=== PATIENT | male | born 1955 | race Caucasian/White ===

== ENCOUNTER → 2017-06-30 | Outpatient (CLI) | payer BC ==
--- NOTE | 2017-06-30 09:23 | US ---
EXAMINATION TYPE: US thyroid st tissue head/neck DATE OF EXAM: 06/30/2017 COMPARISON: 03/29/2016 CLINICAL HISTORY: 62-year-old male E04.1 Thyroid Nodule. TECHNIQUE: Multiple sonographic images of the thyroid gland are obtained. FINDINGS: GLAND SIZE: Right Lobe: 5.3 x 2.0 x 2.2 cm Overall Parenchyma: heterogenous Left Lobe: 5.2 x 1.7 x 2.3 cm Overall Parenchyma: heterogeneous Isthmus Thickness: 0.3 cm NODULES: A number of bilateral subcentimeter nodules are present. Nodules greater than 1 cm are as follows: RIGHT: # of nodules measured on right: 1 1. 1.3 X 1.0 x 1.3 cm isoechoic solid nodule at the lower pole with well-defined margins; This nod ule is wider than tall and shows intranodular vascularity. Prior size: 1.3 x 1.0 x 1.1 cm LEFT: # of nodules measured on left: 1 1. 1.5 X 1.4 x 1.0 cm hypoechoic solid nodule at the upper pole with well-defined margins; This nod ule is wider than tall and shows intranodular vascularity. Prior size: 1.5 x 1.2 x 0.9 cm ISTHMUS: # of nodules measured in the isthmus: 0 Bilateral neck scanned, no evidence of lymphadenopathy. Multiple nodules bilaterally with largest on each side >1.0 cm measured, all other nodules sub-centimeter in size IMPRESSION: Scattered subcentimeter nodules redemonstrated on both sides. There is one nodule on each side measur ing more than 1 cm. These have not significantly changed in the interval measuring only a couple mill imeters larger in one dimension.
== END | disposition home or self-care (01) ==
LOC: RADUSWWP 08:49
PROVIDERS: ATTEND Otolaryngology
DX: E04.2 Nontoxic multinodular goiter (principal)
CPT/HCPCS: 76536

== ENCOUNTER → 2018-08-28 | Outpatient (CLI) | payer BC ==
--- NOTE | 2018-08-28 17:51 | US ---
EXAMINATION TYPE: US thyroid st tissue head/neck DATE OF EXAM: 08/28/2018 COMPARISON: 06/30/2017 CLINICAL HISTORY: E04.1 SINGLE THYROID NODULE. Follow up on 2 prior nodules in multinodular thyroid gland. GLAND SIZE: Right Lobe: 5.0 x 1.9 x 1.8 cm Overall Parenchyma: heterogenous Left Lobe: 5.2 x 1.8 x 2.2 cm Overall Parenchyma: heterogeneous Isthmus Thickness: 0.6 cm NODULES RIGHT: # of nodules measured on right: 2 largest of multiple nodules 1. 1.3 x 1.3 x 1.2cm hypoechoic mixed nodule at the lower pole with well-defined margins. This nod ule is taller than wide and shows intranodular vascularity. Prior size: 1.3 x 1.0 x 1.3 cm 2. 0.7 X 0.7 x 0.7 cm hypoechoic mixed nodule at the mid pole with well-defined margins. This nodul e is wide as is tall and shows intranodular vascularity. LEFT: # of nodules measured on left: 3 largest of multiple nodules 1. 1.5 X 1.3 x 1.0 cm hypoechoic solid nodule at the upper pole with well-defined margins. This no dule is wider than tall and shows intranodular vascularity. Prior size: 1.5 x 1.4 x 1.0 cm 2. 0.9 X 0.8 x 0.5 cm hypoechoic solid nodule at the mid medial pole with well-defined margins. Thi s nodule is wider than tall and shows no intranodular vascularity. 3. 0.8 X 0.7 x 0.5 cm hypoechoic mixed nodule at the mid lateral pole with well-defined margins; pre sent with microcalcifications. This nodule is wider than tall and shows no intranodular vascularity. ISTHMUS: # of nodules measured in the isthmus: 0 Bilateral neck scanned: no evidence of lymphadenopathy. IMPRESSION: There are numerous nodules in both thyroid lobes consistent with multinodular goiter. No dominant thyroid mass. No adverse change compared to old exam.
== END | disposition home or self-care (01) ==
LOC: RADUSWWP 16:41
PROVIDERS: ATTEND Family Medicine
DX: E04.2 Nontoxic multinodular goiter (principal)
CPT/HCPCS: 76536

== ENCOUNTER 2018-12-18 17:15 | Emergency (ER) | payer BC ==
[2018-12-18 17:20] VITALS: BP 156/72
[2018-12-18] MEDS ORDERED: LIDOCAINE 1% INJ 10MG/ML (20 ML MDV) SQ ONE (17:26)
[2018-12-18] MEDS ORDERED: DIPH,PERTUS(ACELL)TETVAC-LF 0.5 ML VIAL IM ONE (17:26)
--- NOTE | 2018-12-18 17:31 | ED ---
Wound/Laceration HPI - General Chief Complaint: Wound/Laceration Stated Complaint: leg lac Time Seen by Provider: 12/18/18 17:22 Source: patient Mode of arrival: ambulatory Limitations: no limitations - History of Present Illness Initial Comments: 63-year-old male patient presents to the emergency department today for evaluation of laceration to the right dias. Patient states approximately 3 hours ago he was cutting open a right when he slipped with the knife and cut his leg instead. Patient states he did apply a dressing however was unable to get the bleeding controlled so presented here for further evaluation. He denies any numbness or tingling to the leg. Denies any difficulty with range of motion or movement. States he takes a baby aspirin daily. States his last tetanus vaccine was over 5 years ago. Denies any other injuries or concerns. Patient denies any headache, neck pain, back pain, chest pain, shortness of breath, dizziness, weakness, abdominal pain, nausea, vomiting, or difficulties with bowel movements or urination. - Related Data Home Medications Medication Instructions Recorded Confirmed Aspirin 81 mg PO DAILY 02/24/14 09/13/16 Losartan Potassium 100 mg PO DAILY 02/24/14 09/13/16 Multivitamin [Men's Multi-Vitamin] 1 each PO DAILY 02/24/14 09/13/16 Niacin 100 mg PO DAILY 02/24/14 09/13/16 Ubidecarenone [Coq-10] 100 mg PO DAILY 02/24/14 09/13/16 Empagliflozin/Linagliptin 4 mg PO DAILY 09/13/16 09/13/16 [Glyxambi 10 mg-5 mg Tablet] Pitavastatin Calcium [Livalo] 0.5 tab PO DAILY 09/13/16 09/13/16 Previous Rx's Medication Instructions Recorded Amoxic-Pot Clav 875-125Mg 1 tab PO Q12HR #20 tablet 12/18/18 [Augmentin 875-125] Allergies Allergy/AdvReac Type Severity Reaction Status Date / Time No Known Allergies Allergy Verified 12/18/18 17:20 Review of Systems ROS Statement: Those systems with pertinent positive or pertinent negative responses have been documented in the HPI. ROS Other: All systems not noted in ROS Statement are negative. Past Medical History Past Medical History: Cancer, Diabetes Mellitus, Hypertension Additional Past Medical History / Comment(s): Melanoma History of Any Multi-Drug Resistant Organisms: None Reported Past Surgical History: No Surgical Hx Reported Additional Past Surgical History / Comment(s): neck surgery; lymph nodes removed; colonoscopy Past Anesthesia/Blood Transfusion Reactions: No Reported Reaction Past Psychological History: No Psychological Hx Reported Smoking Status: Never smoker Past Alcohol Use History: Rare Past Drug Use History: None Reported - Past Family History Mother Family Medical History: No Reported History Sister(s) Family Medical History: Cancer General Exam Limitations: no limitations General appearance: alert, in no apparent distress, other (Physical well- developed, well-nourished adult male patient in no acute distress related vital signs upon presentation are temperature 98.1F, pulse 64, respirations 18, blood pressure 156/72, pulse ox 97% on room air.) Eye exam: Present: normal appearance, PERRL, EOMI. Absent: scleral icterus, conjunctival injection, periorbital swelling Respiratory exam: Present: normal lung sounds bilaterally. Absent: respiratory distress, wheezes, rales, rhonchi, stridor Cardiovascular Exam: Present: regular rate, normal rhythm, normal heart sounds. Absent: systolic murmur, diastolic murmur, rubs, gallop, clicks Extremities exam: Present: full ROM, normal capillary refill, other (3cm laceration to the lower anterior dias, active bleeding noted. Remainder of skin is pink, warm, dry. Cap refills less than 3 seconds. Pedal and posttibial pulses 2+ and equal bilaterally.). Absent: normal inspection, tenderness, pedal edema, joint swelling, calf tenderness Neurological exam: Present: alert, oriented X3, CN II-XII intact Psychiatric exam: Present: normal affect, normal mood Skin exam: Present: warm, dry, intact, normal color. Absent: rash Course Vital Signs 12/18/18 17:16 Temperature 98.1 F Pulse Rate 64 Respiratory 18 Rate Blood Pressure 156/72 O2 Sat by Pulse 97 Oximetry Procedures - Laceration Laceration #1 Consent Obtained: verbal consent Indication: laceration Site: lower extremity Size (cm): 3 Description: linear Depth: simple, single layer Anesthetic Used: lidocaine 1% Anesthesia Technique: local infiltration Amount (mls): 5 Pre-repair: irrigated extensively Type of Sutures: nylon Size of Sutures: 4-0 Number of Sutures: 3 Technique: simple, interrupted Patient Tolerated Procedure: well, no complications Medical Decision Making - Medical Decision Making 62-year-old male patient presented to the emergency department today for jennifer luation of laceration to the right lower dias. Physical examination did reveal a 3 cm laceration with active bleeding. Neurovascular status was intact. Laceration was repaired as documented. Patient also had a cat scratch to the right hand. He was given a prescription for Augmentin should this started to develop signs of infection which we did discuss. He is educated regarding wound care and signs or symptoms of infection. He is instructed to return in 14 days for suture removal. Return parameters were discussed in detail. He is instructed to follow-up with his primary care physician for recheck in 1-2 days. He verbalizes understanding and agrees with this plan. Disposition Clinical Impression: Laceration of right lower extremity, Cat scratch of right hand Disposition: HOME SELF-CARE Condition: Good Instructions (If sedation given, give patient instructions): Care For Your Stitches (ED), Laceration (ED) Additional Instructions: Keep wound clean and dry. Cleanse twice daily with warm water and antibacterial soap. Monitor for signs or symptoms of infection including but not limited to redness, swelling, drainage of pus, fever, or chills. Monitor Scratch, this develops redness started taking the antibiotic. Follow up with your primary care physician for recheck in 1-2 days. Return in 14 days to have the stitches removed. Return for any other new, worsening, or concerning symptoms. Prescriptions: Amoxic-Pot Clav 875-125Mg [Augmentin 875-125] 1 tab PO Q12HR #20 tablet Is patient prescribed a controlled substance at d/c from ED?: No Referrals: Kb Chambers MD [Primary Care Provider] - 1-2 days Time of Disposition: 18:01
[2018-12-18 18:14] VITALS: PULSE 70; RESP 16; TEMP 98
== END 2018-12-18 18:19 | disposition home or self-care (01) ==
LOC: EC 17:15
DX: S81.811A Laceration without foreign body, right lower leg, initial encounter (principal); S60.511A Abrasion of right hand, initial encounter; E11.9 Type 2 diabetes mellitus without complications; I10 Essential (primary) hypertension; Z85.820 Personal history of malignant melanoma of skin; Z79.82 Long term (current) use of aspirin; Z79.84 Long term (current) use of oral hypoglycemic drugs; Z79.899 Other long term (current) drug therapy; Z23 Encounter for immunization; W26.0XXA Contact with knife, initial encounter; Y93.89 Activity, other specified; Y92.009 Unspecified place in unspecified non-institutional (private) residence as the place of occurrence of the external cause
CPT/HCPCS: 90715; 99282; 12002; 90471; J2001

== ENCOUNTER → 2019-12-17 | Outpatient (CLI) | payer BC ==
--- NOTE | 2019-12-17 16:21 | US ---
EXAMINATION TYPE: US thyroid st tissue head/neck DATE OF EXAM: 12/17/2019 COMPARISON: US 08/28/2018 CLINICAL HISTORY: E04.1 Thyroid nodule. F/U GLAND SIZE: Right Lobe: 5.3 x 1.9 x 1.8 cm Overall Parenchyma: heterogenous Left Lobe: 4.5 x 1.4 x 2.0 cm Overall Parenchyma: heterogeneous Isthmus Thickness: 0.4 cm NODULES RIGHT: # of nodules measured on right: 1 1. 1.3 X 1.0 x 1.4 cm isoechoic solid nodule at the lower pole with poorly defined margins; This n odule is wider than tall and shows intranodular vascularity. Prior size: 1.3 x 1.2 x 1.3 cm Innumerable sub-centimeter nodules scattered throughout thyroid LEFT: # of nodules measured on left: 1 1. 1.4 X 1.0 x 1.3 cm hypoechoic solid nodule at the upper pole with well-defined margins; This no dule is wider than tall and shows intranodular vascularity. Prior size: 1.5 x 1.0 x 1.3 cm Other sub-centimeter nodules scattered throughout thyroid Bilateral neck scanned, no evidence of lymphadenopathy. Stable nodules bilaterally that measured >1cm , all other nodules sub-centimeter in size as visualized on previous. IMPRESSION: 1. Stable thyroid nodules.
== END | disposition home or self-care (01) ==
LOC: RADUSMAIN 14:46
PROVIDERS: ATTEND Otolaryngology
DX: E04.2 Nontoxic multinodular goiter (principal)
CPT/HCPCS: 76536

== ENCOUNTER → 2019-12-24 | Outpatient (CLI) | payer BC ==
--- NOTE | 2019-12-24 11:30 | ECHOS ---
STRESS ECHOCARDIOGRAM INDICATIONS: Chest pain. MEDICATIONS: BASELINE HEART RATE: 73 BASELINE BLOOD PRESSURE: 138/65 MAXIMUM HEART RATE: 146 MAXIMUM BLOOD PRESSURE: 208/81 85% MPHR: 133 100% MPHR: 156 METS: 11 MAXIMUM STAGE REACHED: IV TOTAL EXERCISE TIME: 10 minutes CLINICAL INFORMATION: Baseline EKG shows sinus rhythm, normal axis, normal intervals. Patient exercised on Soren protocol for a total of 10 minutes achieving 11 METs 93% of predicted maximal heart rate without chest pain. At peak exercise, occasional PVCs are noted. Baseline echo shows normal left ventricular size, wall motion and systolic function. Postexercise, there is normal hyperdynamic response of all segments of myocardium noted. CONCLUSIONS: 1. Good exercise tolerance. 2. Negative stress test by EKG criteria. 3. Negative stress echo. 4. Occasional PVCs at peak exercise. MMODL / IJN: [id number] /
== END | disposition home or self-care (01) ==
LOC: RADNMMAIN 09:31
PROVIDERS: ATTEND Family Medicine
DX: R07.9 Chest pain, unspecified (principal)
CPT/HCPCS: 93351

== ENCOUNTER → 2022-05-07 | Outpatient (CLI) | payer MEDICARE ==
--- NOTE | 2022-05-07 16:01 | CT ---
EXAMINATION TYPE: CT brain wo con CT DLP: 1162.8 mGycm, Automated exposure control for dose reduction was used. DATE OF EXAM: 05/07/2022 3:51 PM COMPARISON: None. CLINICAL INDICATION:Male, 67 years old with history of R55 SYNCOPE AND COLLAPSE, dizziness x4-5 weeks TECHNIQUE: Brain: Multiple axial CT images of the brain were obtained without IV contrast. Coronal and sagittal reformats reviewed. FINDINGS: Brain: Extra-axial spaces: No abnormal extra-axial fluid collections. Ventricular system: Within normal limits Cerebral parenchyma: No acute intraparenchymal hemorrhage or mass effect. The bloom-white junction is well differentiated. Cerebellum: Unremarkable. Mass effect: No evidence of midline shift. Intracranial vasculature: Atherosclerotic calcifications of the intracranial vessels. Soft tissues: Normal. Calvarium/osseous structures: No depressed skull fracture. Paranasal sinuses and mastoid air cells: Clear Visualized orbits: Orbital contents are intact. IMPRESSION: No acute intracranial process.
== END | disposition home or self-care (01) ==
LOC: RADCTMAIN 15:29
PROVIDERS: ATTEND Family Medicine
DX: R55 Syncope and collapse (principal)
CPT/HCPCS: 70450

== ENCOUNTER 2022-08-30 08:13 | Day surgery (SDC) | payer MEDICARE ==
[2022-08-28 11:59] VITALS: BMI 32.1
[~2022-08-30 08:13] MED LIST: LACTATED RINGERS 1,000 ML IV SCH; LIDOCAINE 1% (10MG/ML) FOR IV START INTRADERMA PRN
[2022-08-30 09:18] VITALS: TEMP 97.6
[2022-08-30 09:30] LABS: Glucose,Whole Blood 146 mg/dL (70-110)
[2022-08-30] MEDS ORDERED: PROPOFOL 10 MG/ML 20 ML VIAL IV ONE (10:17)
--- NOTE | 2022-08-30 10:41 | P.PCN ---
Date of Procedure: 08/30/22 Procedure(s) Performed: BRIEF HISTORY: Patient is a 57-year-old pleasant white male scheduled for an elective colonoscopy as a part of evaluation of prior history of colon polyps. Last coloscopy was 6 years ago. PROCEDURE PERFORMED: Colonoscopy with biopsy and snare polypectomy. PREOPERATIVE DIAGNOSIS: History of colon polyps. IV sedation per Anesthesia. PROCEDURE: After informed consent was obtained, the patient, was brought into the endoscopy unit. IV sedation was administered by Anesthesia under continuous monitoring. Digital rectal examination was normal. Initially the Olympus CF-160 flexible video colonoscope was then inserted in the rectum, gradually advanced into the cecum without any difficulty. Careful examination was performed as the scope was gradually being withdrawn. Ileocecal valve was very prominent and lipomatous and biopsies were done from this area and the appendiceal orifice were visualized and appeared normal. Prep was excellent. Mucosa of the cecum, ascending colon, transverse colon, normal. The descending colon there was a 5 limited polyp removed by snare polypectomy. In the sigmoid colon there was a 5 mm and 6 mm polyp removed by snare polypectomy. Rest of the descending colon, sigmoid colon, and rectum appeared normal. In the rectum there was a 5 limited polyp removed by snare polypectomy. Retroflexion was performed in the rectum and no lesions were seen. The patient tolerated the procedure well. IMPRESSION: Prominent lipomatous ileocecal valve status post biopsy 5 mm descending colon polyp status post snare polypectomy 5 mm and 6 mm sigmoid polyp status post polypectomy 5 mm rectal polyp status post polypectomy RECOMMENDATIONS: Findings of this examination were discussed with the patient as well as his family. He was advised to follow with the biopsy results. If the biopsy results adenoma he can have a repeat colonoscopy in 5 years..
[2022-08-30 11:00] VITALS: BP 132/82; PULSE 74; RESP 16
== END 2022-08-30 11:18 | disposition home or self-care (01) ==
LOC: ORWHC2ENDO 08:13
PROVIDERS: ATTEND Internal Medicine Gastroenterology
DX: Z12.11 Encounter for screening for malignant neoplasm of colon (principal); D12.4 Benign neoplasm of descending colon; D12.5 Benign neoplasm of sigmoid colon; K62.1 Rectal polyp; K63.89 Other specified diseases of intestine
CPT/HCPCS: 88305; 45380; 45385; J2704

== ENCOUNTER → 2023-03-14 | Outpatient (CLI) | payer MEDICARE ==
--- NOTE | 2023-03-14 13:27 | US ---
EXAMINATION TYPE: US thyroid st tissue head/neck DATE OF EXAM: 03/14/2023 COMPARISON: US 12/17/19 and older studies. CLINICAL INDICATION: Male, 68 years old with history of E04.1 THYROID NODULE; Thyroid nodule. GLAND SIZE: Right Lobe: 5.4 x 2.3 x 2.1 cm Overall Parenchyma: heterogenous Left Lobe: 5.9 x 2.1 x 2.3 cm Overall Parenchyma: heterogenous Isthmus Thickness: 0.38 cm NODULES RIGHT: # of nodules measured on right: 2, Additional subcentimeter nodules seen. 1. 1.5 X 1.8 x 1.5 cm, lower mid, solid or almost completely solid, isoechoic nodule, which is wide r than tall, with smooth margins, without echogenic foci. Prior size: 1.3 x 1.0 x 1.4 cm 2. 0.8 X 0.7 x 0.5 cm, mid medial, cystic or almost completely cystic, anechoic nodule, which is w ider than tall, with smooth margins, with echogenic foci. Prior size: Does not correlate on prior Additional innumerable subcentimeter nodules noted. LEFT: # of nodules measured on left: 2, Additional subcentimeter nodules seen. 1. 1.6 X 1.3 x 1.0 cm, upper medial, solid or almost completely solid, hypoechoic nodule, which is wider than tall, with smooth margins, without echogenic foci. Prior size: 1.4 x 1.0 x 1.3 cm 2. 1.2 X 0.8 x 0.7 cm, mid mid, solid or almost completely solid, hypoechoic nodule, which is wide r than tall, with smooth margins, without echogenic foci. Prior size: Does not correlate on prior Additional innumerable subcentimeter nodules noted. ISTHMUS: # of nodules measured in the isthmus: 0 Bilateral neck scanned, no evidence of lymphadenopathy. Heterogeneous normal-sized thyroid with several bilateral thyroid nodules redemonstrated. IMPRESSION: Findings consistent with multinodular goiter remain present. No significant change from p rior ultrasounds.
== END | disposition home or self-care (01) ==
LOC: RADUSWWP 12:38
PROVIDERS: ATTEND Otolaryngology
DX: E04.2 Nontoxic multinodular goiter (principal)
CPT/HCPCS: 76536

== ENCOUNTER → 2023-04-30 | Outpatient (CLI) | payer MEDICARE ==
--- NOTE | 2023-04-30 10:06 | MR ---
EXAMINATION TYPE: MR brain and iac wo/w con DATE OF EXAM: 04/30/2023 COMPARISON: HISTORY: Sudden left side hearing loss. TECHNIQUE: Multiplanar, multisequence images of the brain and brainstem is performed without and with IV contras t, utilizing 10 mL intravenous Gadavist . FINDINGS: Diffusion weighted images demonstrate no evidence of a recent infarct or other diffusion ab normality. There is no extra-axial fluid collection or significant white matter signal abnormality. The ventricular system and cisternal spaces are normal in size and appearance. The brain volume is age appropriate. Midline structures demonstrate normal morphology. The craniocervical junction appears within normal limits. Post contrast images demonstrate no abnormal enhancement. The dural venous sinuses appear pa tent. Mild changes of chronic sinusitis and the globes are intact. There is a lobulated prominence measurin g 1.3 cm posterior nasopharynx. There is a 7 mm area of enhancement within the intracanicular portion of the left internal auditory c anal\7th and 8th cranial nerve complex compatible with a small acoustic schwannoma IMPRESSION: 1. 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 2. There is a lobulated margin of the posterior nasopharynx with a 1.3 cm mucosal lesion which does n ot appear to be compatible with a simple cyst\Thornwald cyst. Correlate clinically.
== END | disposition home or self-care (01) ==
LOC: RADMRIMAIN 08:03
PROVIDERS: ATTEND Otolaryngology
DX: D33.3 Benign neoplasm of cranial nerves (principal); H90.A22 Sensorineural hearing loss, unilateral, left ear, with restricted hearing on the contralateral side; J34.89 Other specified disorders of nose and nasal sinuses
CPT/HCPCS: 70553; A9585

== ENCOUNTER 2023-05-14 09:41 | Emergency (ER) | payer MEDICARE ==
[2023-05-14] MEDS ORDERED: MECLIZINE 12.5 MG TAB PO STA (10:16)
[2023-05-14] MEDS ORDERED: METOCLOPRAMIDE 5 MG/ML 2 ML VIAL IVP STA (10:16)
--- NOTE | 2023-05-14 10:19 | ED ---
General Adult HPI - General Chief complaint: Dizziness Stated complaint: Dizziness Time Seen by Provider: 05/14/23 10:05 Source: patient, family, EMS, RN notes reviewed Mode of arrival: EMS Limitations: no limitations - History of Present Illness Initial comments: Patient is a pleasant 68-year-old male presenting to the emergency department with concerns with dizziness. Onset of symptoms was around 8 AM. Patient was arty awake. Patient suddenly felt a spinning type sensation that was difficult to describe. Patient states symptoms are better but not fully resolved. Symptoms are worse with movement and upright position. No history of similar s ymptoms previously. Patient does have a history of left hearing loss with a cyst behind her left tympanic membrane diagnosed on MRI a couple weeks ago. Patient did have a fall prior to that a week or so and has had some neck discomfort since that time. Patient also had MRI done of the neck. Patient denies striking his head at that time. Patient denies syncope despite nursing note seen otherwise. Patient is confident regarding this. - Related Data Home Medications Medication Instructions Recorded Confirmed Losartan Potassium 100 mg PO DAILY 02/24/14 05/14/23 Multivitamin [Men's Multi-Vitamin] 1 tab PO DAILY 02/24/14 05/14/23 metFORMIN HCL [Glucophage] 500 mg PO BID-W/MEALS 08/28/22 05/14/23 Aspirin EC [Ecotrin Low Dose] 81 mg PO DAILY 05/14/23 05/14/23 Empagliflozin [Jardiance] 25 mg PO DAILY 05/14/23 05/14/23 Ibuprofen [Motrin] 800 mg PO TID PRN 05/14/23 05/14/23 Semaglutide [Ozempic] 1 mg SQ MO 05/14/23 05/14/23 hydroCHLOROthiazide [Hydrodiuril] 25 mg PO DAILY 05/14/23 05/14/23 icosapent ethyL [Icosapent Ethyl] 2 gm PO BID 05/14/23 05/14/23 tadalafiL 5 mg PO DAILY 05/14/23 05/14/23 Allergies Allergy/AdvReac Type Severity Reaction Status Date / Time No Known Allergies Allergy Verified 05/14/23 12:55 Review of Systems ROS Statement: Those systems with pertinent positive or pertinent negative responses have been documented in the HPI. ROS Other: All systems not noted in ROS Statement are negative. Constitutional: Denies: fever Eyes: Denies: eye pain ENT: Reports: as per HPI. Denies: ear pain Respiratory: Denies: cough Cardiovascular: Denies: chest pain Endocrine: Denies: fatigue Gastrointestinal: Denies: abdominal pain Genitourinary: Denies: dysuria Neurological: Reports: vertigo. Denies: headache, weakness Past Medical History Past Medical History: Cancer, Diabetes Mellitus, Hyperlipidemia, Hypertension Additional Past Medical History / Comment(s): Melanoma History of Any Multi-Drug Resistant Organisms: None Reported Past Surgical History: No Surgical Hx Reported Additional Past Surgical History / Comment(s): neck surgery; lymph nodes removed; colonoscopy Past Anesthesia/Blood Transfusion Reactions: No Reported Reaction Past Psychological History: No Psychological Hx Reported Smoking Status: Never smoker Past Alcohol Use History: Occasional - Past Family History Mother Family Medical History: No Reported History Sister(s) Family Medical History: Cancer General Exam Limitations: no limitations General appearance: alert, in no apparent distress Head exam: Present: normocephalic Eye exam: Present: normal appearance, PERRL, EOMI. Absent: nystagmus ENT exam: Present: normal oropharynx Neck exam: Present: normal inspection. Absent: tenderness Respiratory exam: Present: normal lung sounds bilaterally Cardiovascular Exam: Present: regular rate, normal rhythm GI/Abdominal exam: Present: soft. Absent: tenderness Extremities exam: Present: normal inspection, full ROM. Absent: tenderness Neurological exam: Present: alert, oriented X3, CN II-XII intact (Hearing not tested). Absent: motor sensory deficit Expanded Neurological exam: Present: protecting the airway Speech: Present: fluid speech Cranial nerves: EOM's Intact: Normal Cerebellar function: Finger to Nose: Normal Motor strength exam: RUE: 5, LUE: 5, RLE: 5, LLE: 5 Eye Response: (4) open spontaneously Motor Response: (6) obeys commands Verbal Response: (5) oriented Psychiatric exam: Present: normal affect, normal mood Skin exam: Present: normal color Course Vital Signs 05/14/23 05/14/23 09:45 12:39 Temperature 97.2 F L 97.5 F L Pulse Rate 81 69 Respiratory 18 17 Rate Blood Pressure 140/85 129/77 O2 Sat by Pulse 100 93 L Oximetry EKG Findings - EKG Results: EKG: interpreted by ERMD, sinus rhythm, normal axis, normal QRS, normal ST/T Medical Decision Making - Medical Decision Making Was pt. sent in by a medical professional or institution (GUY Reid, STRADDLE BUG DRIVER, urgent care, hospital, or senior care...) When possible be specific @ -No Did you speak to anyone other than the patient for history (EMS, parent, family, police, friend...)? What history was obtained from this source @ -Family helps provide history including single episode prior to arrival. Family later arrived and confirmed patient did have a syncopal episode Did you review nursing and triage notes (agree or disagree)? Why? @ -I reviewed and agree with nursing and triage notes Were old charts reviewed (outside hosp., previous admission, EMS record, old EKG, old radiological studies, urgent care reports/EKG's, senior care records)? Report findings @ -No old charts were reviewed Differential Diagnosis (chest pain, altered mental status, abdominal pain women, abdominal pain men, vaginal bleeding, weakness, fever, dyspnea, syncope, headache, dizziness, GI bleed, back pain, seizure, CVA, palpatations, mental health, musculoskeletal)? @ -Differential Syncope: Valvular disease, hypertrophic cardiomyopathy, pulmonary embolism, tamponade, tachycardia, bradycardia, NH, hypovolemia, hemorrhage, dissection, anemia, intracranial hemorrhage, seizure, hypoglycemia, carbon monoxide poisoning, this is not meant to be an all-inclusive list. EKG interpreted by me (3pts min.). @ -As above X-rays interpreted by me (1pt min.). @ -Chest x-ray shows no acute process CT interpreted by me (1pt min.). @ -CT brain without large mass or hemorrhage U/S interpreted by me (1pt. min.). @ -None done What testing was considered but not performed or refused? (CT, X-rays, U/S, labs)? Why? @ -None What meds were considered but not given or refused? Why? @ -None Did you discuss the management of the patient with other professionals (amaris ayon i.e. GUY Reid, STRADDLE BUG DRIVER, lab, RT, psych nurse, clinical social work aide, production administrative assistant, teacher, safety patrol officer, machine adjuster leader case trim)? Give summary @ -Case was discussed with Dr. Ornelas, who will admit covering Dr. Chambers. He does agree with neurology consult Was smoking cessation discussed for >3mins.? @ -No Was critical care preformed (if so, how long)? @ -No Were there social determinants of health that impacted care today? How? (Homelessness, low income, unemployed, alcoholism, drug addiction, transporta tion, low edu. Level, literacy, decrease access to med. care, snf, rehab)? @ -No Was there de-escalation of care discussed even if they declined (Discuss DNR or withdrawal of care, Hospice)? DNR status @ -No What co-morbidities impacted this encounter? (DM, HTN, Smoking, COPD, CAD, Cancer, CVA, ARF, Chemo, Hep., AIDS, mental health diagnosis, sleep apnea, morbid obesity)? @ -None Was patient admitted / discharged? Hospital course, mention meds given and route, prescriptions, significant lab abnormalities, going to OR and other pertinent info. @ -Patient reevaluated and had minimal improvement following original medications then symptoms seemed to worsen. Patient did have a syncopal episode in the emergency department. This was associated with extreme dizziness. Patient did not have any other complaints at that time. Reevaluation other cisneros negative. Patient again reevaluated and drowsy following Ativan. Patient will be admitted with neurology consult Undiagnosed new problem with uncertain prognosis? @ -No Drug Therapy requiring intensive monitoring for toxicity (Heparin, Nitro, Insulin, Cardizem)? @ -No Were any procedures done? @ -No Diagnosis/symptom? @ -Syncope, vertigo Acute, or Chronic, or Acute on Chronic? @ -Acute, acute Uncomplicated (without systemic symptoms) or Complicated (systemic symptoms)? @ -default Side effects of treatment? @ -No Exacerbation, Progression, or Severe Exacerbation? @ -No Poses a threat to life or bodily function? How? (Chest pain, USA, NH, pneumonia, PE, COPD, DKA, ARF, appy, cholecystitis, CVA, Diverticulitis, Homicidal, Suicidal, threat to staff... and all critical care pts) @ -No - Lab Data Result diagrams: 05/14/23 11:03 05/14/23 11:03 Lab Results 05/14/23 05/14/23 05/14/23 Range/Units 11:03 11:03 11:03 WBC 10.2 (3.8-10.6) k/uL RBC 4.62 (4.30-5.90) m/uL Hgb 14.3 (13.0-17.5) gm/dL Hct 40.4 (39.0-53.0) % MCV 87.5 (80.0-100.0) fL MCH 30.8 (25.0-35.0) pg MCHC 35.3 (31.0-37.0) g/dL RDW 13.2 (11.5-15.5) % Plt Count 131 L (150-450) k/uL MPV 9.8 Neutrophils % 82 % Lymphocytes % 9 % Monocytes % 6 % Eosinophils % 2 % Basophils % 0 % Neutrophils # 8.4 H (1.3-7.7) k/uL Lymphocytes # 0.9 L (1.0-4.8) k/uL Monocytes # 0.6 (0-1.0) k/uL Eosinophils # 0.2 (0-0.7) k/uL Basophils # 0.0 (0-0.2) k/uL PT 10.5 (9.0-12.0) sec INR 1.0 (<1.2) APTT 20.7 L (22.0-30.0) sec Sodium 137 (137-145) mmol/L Potassium 3.5 (3.5-5.1) mmol/L Chloride 105 (98-107) mmol/L Carbon Dioxide 21 L (22-30) mmol/L Anion Gap 11 mmol/L BUN 18 (9-20) mg/dL Creatinine 0.72 (0.66-1.25) mg/dL Est GFR (CKD-EPI)AfAm >90 (>60 ml/min/1.73 sqM) Est GFR (CKD-EPI)NonAf >90 (>60 ml/min/1.73 sqM) Glucose 124 H (74-99) mg/dL Lactic Ac Sepsis Rflx Plasma Lactic Acid Cresencio (0.7-2.0) mmol/L Calcium 8.9 (8.4-10.2) mg/dL Magnesium 1.6 (1.6-2.3) mg/dL Total Bilirubin 1.3 (0.2-1.3) mg/dL AST 34 (17-59) U/L ALT 31 (4-49) U/L Alkaline Phosphatase 61 (38-126) U/L Troponin I (0.000-0.034) ng/mL Total Protein 6.8 (6.3-8.2) g/dL Albumin 4.1 (3.5-5.0) g/dL 05/14/23 05/14/23 05/14/23 Range/Units 11:03 11:03 11:36 WBC (3.8-10.6) k/uL RBC (4.30-5.90) m/uL Hgb (13.0-17.5) gm/dL Hct (39.0-53.0) % MCV (80.0-100.0) fL MCH (25.0-35.0) pg MCHC (31.0-37.0) g/dL RDW (11.5-15.5) % Plt Count (150-450) k/uL MPV Neutrophils % % Lymphocytes % % Monocytes % % Eosinophils % % Basophils % % Neutrophils # (1.3-7.7) k/uL Lymphocytes # (1.0-4.8) k/uL Monocytes # (0-1.0) k/uL Eosinophils # (0-0.7) k/uL Basophils # (0-0.2) k/uL PT (9.0-12.0) sec INR (<1.2) APTT (22.0-30.0) sec Sodium (137-145) mmol/L Potassium (3.5-5.1) mmol/L Chloride (98-107) mmol/L Carbon Dioxide (22-30) mmol/L Anion Gap mmol/L BUN (9-20) mg/dL Creatinine (0.66-1.25) mg/dL Est GFR (CKD-EPI)AfAm (>60 ml/min/1.73 sqM) Est GFR (CKD-EPI)NonAf (>60 ml/min/1.73 sqM) Glucose (74-99) mg/dL Lactic Ac Sepsis Rflx Y Plasma Lactic Acid Cresencio 2.9 H* (0.7-2.0) mmol/L Calcium (8.4-10.2) mg/dL Magnesium (1.6-2.3) mg/dL Total Bilirubin (0.2-1.3) mg/dL AST (17-59) U/L ALT (4-49) U/L Alkaline Phosphatase (38-126) U/L Troponin I <0.012 (0.000-0.034) ng/mL Total Protein (6.3-8.2) g/dL Albumin (3.5-5.0) g/dL Disposition Clinical Impression: Syncope, Vertigo Disposition: ADMITTED IP TO THIS HOSP Is patient prescribed a controlled substance at d/c from ED?: No Referrals: Kb Chambers MD [Primary Care Provider] - 1-2 days Time of Disposition: 13:54
--- NOTE | 2023-05-14 10:37 | CT ---
EXAMINATION TYPE: CT brain wo con CT DLP: 1127.4 mGycm, Automated exposure control for dose reduction was used. DATE OF EXAM: 05/14/2023 10:30 AM COMPARISON: CT brain 05/07/2022, MRI brain and IAC 04/30/2023 CLINICAL INDICATION:Male, 68 years old with history of weakness, weakness, dizziness TECHNIQUE: Brain: Multiple axial CT images of the brain were obtained without IV contrast. Coronal and sagittal reformats reviewed. FINDINGS: Brain: Extra-axial spaces: No abnormal extra-axial fluid collections. Ventricular system: Within normal limits Cerebral parenchyma: No acute intraparenchymal hemorrhage or mass effect. The bloom-white junction is well differentiated. Cerebellum: Unremarkable. Mass effect: No evidence of midline shift. Intracranial vasculature: unremarkable Soft tissues: Normal. Calvarium/osseous structures: No depressed skull fracture. Paranasal sinuses and mastoid air cells: The mastoid air cells are clear. Mild mucosal thickening of the bilateral anterior ethmoid sinuses right greater than left. Visualized orbits: Orbital contents are intact. IMPRESSION: No acute intracranial process.
--- NOTE | 2023-05-14 10:38 | XR ---
EXAMINATION TYPE: XR chest 2V DATE OF EXAM: 05/14/2023 10:32 AM COMPARISON: None available TECHNIQUE: XR chest 2V Frontal and lateral views of the chest. CLINICAL INDICATION:Male, 68 years old with history of Weakness; FINDINGS: Lungs/Pleura: There is no evidence of pleural effusion, focal consolidation, or pneumothorax. Pulmonary vascularity: Unremarkable. Heart/mediastinum: Cardiomediastinal silhouette is prominent in size. Musculoskeletal: Multiple level degenerative disc disease changes seen throughout the spine. Anterior cervical fusion hardware. IMPRESSION: No acute cardiopulmonary disease/process.
[2023-05-14 11:21] LABS: Basophils % (A) 0 %; Eosinophils # (A) 0.2 k/uL (0-0.7); Eosinophils % (A) 2 %; HCT 40.4 % (39.0-53.0); HGB 14.3 gm/dL (13.0-17.5); Lymphocytes # (A) 0.9 k/uL (1.0-4.8); Lymphocytes % (A) 9 %; MCH 30.8 pg (25.0-35.0); MCHC 35.3 g/dL (31.0-37.0); MCV 87.5 fL (80.0-100.0); Mean Platelet Volume 9.8; Monocytes # (A) 0.6 k/uL (0-1.0); Monocytes % (A) 6 %; Neutrophils # (A) 8.4 k/uL (1.3-7.7); Neutrophils % (A) 82 %; Platelet Count 131 k/uL (150-450); RBC 4.62 m/uL (4.30-5.90); RDW 13.2 % (11.5-15.5); WBC 10.2 k/uL (3.8-10.6)
[2023-05-14 11:35] LABS: ALT 31 U/L (4-49); AST 34 U/L (17-59); African American GFR (CKD) >90 (>60 ml/min/1.73 sqM); Albumin 4.1 g/dL (3.5-5.0); Alkaline Phosphatase 61 U/L (38-126); Anion Gap 11 mmol/L; Blood Urea Nitrogen 18 mg/dL (9-20); Calcium 8.9 mg/dL (8.4-10.2); Carbon Dioxide 21 mmol/L (22-30); Chloride 105 mmol/L (98-107); Glucose 124 mg/dL (74-99); Magnesium 1.6 mg/dL (1.6-2.3); Non-African American GFR(CKD) >90 (>60 ml/min/1.73 sqM); Potassium 3.5 mmol/L (3.5-5.1); Sodium 137 mmol/L (137-145); Total Bilirubin 1.3 mg/dL (0.2-1.3); Total Protein 6.8 g/dL (6.3-8.2)
[2023-05-14 12:22] LABS: Prothrombin Time 10.5 sec (9.0-12.0)
[2023-05-14 12:24] LABS: Partial Thromboplastin Time 20.7 sec (22.0-30.0)
[2023-05-14] MEDS ORDERED: LORazepam 2 MG/ML INJ IV STA (12:24)
[2023-05-14 12:41] VITALS: TEMP 97.5
[2023-05-14] MEDS ORDERED: SCOPOLAMINE 1 MG/72 HR PATCH TRANSDERM STA (12:45)
[2023-05-14] MEDS ORDERED: NALOXONE 0.4 MG/ML 1 ML VIAL IV PRN (13:54)
[2023-05-14] MEDS ORDERED: MECLIZINE 25 MG TAB PO PRN (13:57)
--- NOTE | 2023-05-14 14:26 | P.PN ---
Progress Note - Text Progress Note Date: 05/14/23 Received request for admission and outpatient MRI reviewed with 7 mm Left vestibular schwannoma. Notified Dr. Cantu of patient case and request for consult. MRI reviewed, he recommends neurosurgical evaluation for the patient and subsequently contacted Dr. Valentin.
[2023-05-14 16:39] VITALS: BP 140/84; PULSE 92; RESP 16
[2023-05-14] MEDS ORDERED: METOCLOPRAMIDE 5 MG/ML 2 ML VIAL IVP SCH (18:00)
== END 2023-05-14 17:15 | disposition other institution (70) ==
LOC: EC 09:41 → UNDOADMOB 13:56 → 6NMEDSUR 13:56 → EC 17:15
DX: R42 Dizziness and giddiness (principal); R55 Syncope and collapse; I10 Essential (primary) hypertension; E11.9 Type 2 diabetes mellitus without complications; E78.5 Hyperlipidemia, unspecified; Z79.82 Long term (current) use of aspirin; Z79.84 Long term (current) use of oral hypoglycemic drugs; Z79.899 Other long term (current) drug therapy
CPT/HCPCS: 36415; 93005; 80053; 83605; 83735; 84484; 85025; 85610; 85730; 71046; 70450; 99285; 96374; 96375; J2060; J2765

== ENCOUNTER → 2024-03-05 | Outpatient (CLI) | payer MEDICARE | END | disposition home or self-care (01) | LOC: LABWHC1 11:48 | PROVIDERS: ATTEND Urology | DX: R97.20 Elevated prostate specific antigen [PSA] (principal) | CPT/HCPCS: 36415; 84153 ==

== ENCOUNTER 2024-07-14 07:48 | Emergency (ER) | payer MEDICARE ==
[2024-07-14 07:52] VITALS: TEMP 98.1
[2024-07-14 08:37] LABS: Appearance,Urine Clear (Clear); Bilirubin,Urine Negative (Negative); Blood,Urine Negative (Negative); Color,Urine Colorless; Glucose,Urine (UA) 4+ (Negative); Ketones,Urine Negative (Negative); Leukocyte Esterase,Urine Negative (Negative); Nitrite,Urine Negative (Negative); Protein,Urine Negative (Negative); Specific Gravity,Urine 1.022 (1.001-1.035); Urobilinogen,Urine <2.0 mg/dL (<2.0)
--- NOTE | 2024-07-14 08:39 | XR ---
EXAMINATION TYPE: XR KUB DATE OF EXAM: 07/14/2024 COMPARISON: NONE HISTORY: Pain TECHNIQUE: Single supine KUB image of the abdomen is obtained FINDINGS: Small bowel demonstrates no evidence for dilatation or air fluid levels. Gas and fecal material is seen in non-distended colon. No convincing evidence for pneumoperitoneum. No unusual calcifications. The lung bases are clear. The osseous structures are intact. IMPRESSION: 1. Overall nonobstructive bowel gas pattern. [facility], , 07/14/2024 8:37 AM
--- NOTE | 2024-07-14 08:49 | ED ---
Abdominal Pain HPI - General Chief Complaint: Abdominal Pain Stated Complaint: poss bowel blockage Time Seen by Provider: 07/14/24 07:59 Source: patient, RN notes reviewed Mode of arrival: ambulatory Limitations: no limitations - History of Present Illness Initial Comments: 69-year-old male presents emergency department chief complaint of abdominal pain. Patient states he has not been able to have a good bowel movement in several days states he is now unable to urinate states he last urinated several hours ago feels like he has to go but cannot go. Patient does have known prostate cancer states he is not on any treatment. Patient denies any prior abdominal surgeries denies any fevers or chills no chest pain or shortness of breath. - Related Data Home Medications Medication Instructions Recorded Confirmed Losartan Potassium 100 mg PO DAILY 02/24/14 05/14/23 Multivitamin [Men's Multi-Vitamin] 1 tab PO DAILY 02/24/14 05/14/23 metFORMIN HCL [Glucophage] 500 mg PO BID-W/MEALS 08/28/22 05/14/23 Aspirin EC [Ecotrin Low Dose] 81 mg PO DAILY 05/14/23 05/14/23 Empagliflozin [Jardiance] 25 mg PO DAILY 05/14/23 05/14/23 Ibuprofen [Motrin] 800 mg PO TID PRN 05/14/23 05/14/23 Semaglutide [Ozempic] 1 mg SQ MO 05/14/23 05/14/23 hydroCHLOROthiazide [Hydrodiuril] 25 mg PO DAILY 05/14/23 05/14/23 icosapent ethyL [Icosapent Ethyl] 2 gm PO BID 05/14/23 05/14/23 tadalafiL 5 mg PO DAILY 05/14/23 05/14/23 Allergies Allergy/AdvReac Type Severity Reaction Status Date / Time No Known Allergies Allergy Verified 07/14/24 07:52 Review of Systems ROS Statement: Those systems with pertinent positive or pertinent negative responses have been documented in the HPI. ROS Other: All systems not noted in ROS Statement are negative. Past Medical History Past Medical History: Cancer, Diabetes Mellitus, Hyperlipidemia, Hypertension Additional Past Medical History / Comment(s): Melanoma History of Any Multi-Drug Resistant Organisms: None Reported Past Surgical History: No Surgical Hx Reported Additional Past Surgical History / Comment(s): neck surgery; lymph nodes removed; colonoscopy Past Anesthesia/Blood Transfusion Reactions: No Reported Reaction Past Psychological History: No Psychological Hx Reported Smoking Status: Never smoker Past Alcohol Use History: Occasional - Past Family History Mother Family Medical History: No Reported History Sister(s) Family Medical History: Cancer General Exam Limitations: no limitations General appearance: alert, in no apparent distress Head exam: Present: atraumatic, normocephalic, normal inspection Eye exam: Present: normal appearance, PERRL, EOMI. Absent: scleral icterus, conjunctival injection, periorbital swelling Neck exam: Present: normal inspection, full ROM. Absent: tenderness, meningismus, lymphadenopathy Respiratory exam: Present: normal lung sounds bilaterally. Absent: respiratory distress, wheezes, rales, rhonchi, stridor Cardiovascular Exam: Present: regular rate, normal rhythm, normal heart sounds. Absent: systolic murmur, diastolic murmur, rubs, gallop, clicks GI/Abdominal exam: Present: soft, distended, tenderness, normal bowel sounds. Absent: guarding, rebound, rigid Back exam: Absent: CVA tenderness (R), CVA tenderness (L) Course Vital Signs 07/14/24 07/14/24 07:48 09:51 Temperature 98.1 F 98.1 F Pulse Rate 82 78 Respiratory 22 20 Rate Blood Pressure 153/77 141/82 O2 Sat by Pulse 99 99 Oximetry Medical Decision Making - Medical Decision Making Was pt. sent in by a medical professional or institution (, PA, EXCEPTIONAL STUDENT EDUCATION AIDE, urgent ca re, hospital, or correction...) When possible be specific @ -No Did you speak to anyone other than the patient for history (EMS, parent, family, police, friend...)? What history was obtained from this source @ -No Did you review nursing and triage notes (agree or disagree)? Why? @ -I reviewed and agree with nursing and triage notes Were old charts reviewed (outside hosp., previous admission, EMS record, old EKG, old radiological studies, urgent care reports/EKG's, correction records)? Report findings @ -No old charts were reviewed Differential Diagnosis (chest pain, altered mental status, abdominal pain women, abdominal pain men, vaginal bleeding, weakness, fever, dyspnea, syncope, headache, dizziness, GI bleed, back pain, seizure, CVA, palpatations, mental health, musculoskeletal)? @ -Differential Abdominal Pain Men: Appendicitis, cholecystitis, diverticulosis, ischemic bowel, pancreatitis, hepatitis, UTI, gastroenteritis, AAA, incarcerated hernia, bowel obstruction, constipation, inflammatory bowel, hepatitis, peptic ulcer disease, splenic infarction, perforated viscus, testicular torsion, this is not meant to be an all-inclusive list EKG interpreted by me (3pts min.). @ -None X-rays interpreted by me (1pt min.). @ -X-ray KUB showing moderate constipation CT interpreted by me (1pt min.). @ -None done U/S interpreted by me (1pt. min.). @ -None done What testing was considered but not performed or refused? (CT, X-rays, U/S, labs)? Why? @ -None What meds were considered but not given or refused? Why? @ -None Did you discuss the management of the patient with other professionals (professionals i.e. , PA, EXCEPTIONAL STUDENT EDUCATION AIDE, lab, RT, psych nurse, high school social studies tutor, poultry scalder, teacher, radio division officer, rn field case manager)? Give summary @ -No Was smoking cessation discussed for >3mins.? @ -No Was critical care preformed (if so, how long)? @ -No Were there social determinants of health that impacted care today? How? (Homelessness, low income, unemployed, alcoholism, drug addiction, transpo rtation, low edu. Level, literacy, decrease access to med. care, long term, rehab)? @ -No Was there de-escalation of care discussed even if they declined (Discuss DNR or withdrawal of care, Hospice)? DNR status @ -No What co-morbidities impacted this encounter? (DM, HTN, Smoking, COPD, CAD, Cancer, CVA, ARF, Chemo, Hep., AIDS, mental health diagnosis, sleep apnea, morbid obesity)? @ -None Was patient admitted / discharged? Hospital course, mention meds given and route, prescriptions, significant lab abnormalities, going to OR and other pertinent info. @ -Discharge patient presented for constipation, urinary retention. Smith catheter was initiated in which she had over 500 mL of urine output. Patient did have some relief but remained constipated which she was given enema patient had she had a large bowel movement states his abdominal pain has resolved he has a soft nontender abdomen. We discussed leaving Smith catheter and following up patient prefers to have removed understanding risk of possible urinary retention and rate having to return. Undiagnosed new problem with uncertain prognosis? @ -No Drug Therapy requiring intensive monitoring for toxicity (Heparin, Nitro, Insulin, Cardizem)? @ -No Were any procedures done? @ -No Diagnosis/symptom? @ -Constipation, urinary retention Acute, or Chronic, or Acute on Chronic? @ -Acute Uncomplicated (without systemic symptoms) or Complicated (systemic symptoms)? @ -Uncomplicated Side effects of treatment? @ -No Exacerbation, Progression, or Severe Exacerbation? @ -No Poses a threat to life or bodily function? How? (Chest pain, USA, [place], pneumonia, PE, COPD, DKA, ARF, appy, cholecystitis, CVA, Diverticulitis, Homicidal, Suicidal, threat to staff... and all critical care pts) @ -No - Lab Data Lab Results 07/14/24 Range/Units 08:26 Urine Color Colorless Urine Appearance Clear (Clear) Urine pH 7.0 (5.0-8.0) Ur Specific [place] 1.022 (1.001-1.035) Urine Protein Negative (Negative) Urine Glucose (UA) 4+ H (Negative) Urine Ketones Negative (Negative) Urine Blood Negative (Negative) Urine Nitrite Negative (Negative) Urine Bilirubin Negative (Negative) Urine Urobilinogen <2.0 (<2.0) mg/dL Ur Leukocyte Esterase Negative (Negative) Disposition Clinical Impression: Constipation, Urinary retention Disposition: HOME SELF-CARE Condition: Stable Instructions (If sedation given, give patient instructions): Constipation (ED), Urinary Retention in Men (ED) Additional Instructions: Please return to the Emergency Department if symptoms worsen or any other concerns. Is patient prescribed a controlled substance at d/c from ED?: No Referrals: Kb Chambers MD [Primary Care Provider] - 1-2 days Time of Disposition: 09:38
[2024-07-14] MEDS: MAGNESIUM CITRATE 296 ML BOTTLE PO ONE (09:08)
[2024-07-14 09:52] VITALS: BP 141/82; PULSE 78; RESP 20
== END 2024-07-14 09:52 | disposition home or self-care (01) ==
LOC: EC 07:48
DX: K59.00 Constipation, unspecified (principal); R33.9 Retention of urine, unspecified
CPT/HCPCS: 51702; 74018; 81003; 99284

== ENCOUNTER → 2024-08-23 | Outpatient (CLI) | payer MEDICARE ==
[2024-08-23 15:48] LABS: ALT 21 U/L (10-49); AST 23 U/L (14-35); Albumin 4.2 g/dL (3.8-4.9); Albumin/Globulin Ratio 1.83 Ratio (1.60-3.17); Alkaline Phosphatase 80 U/L (41-126); Blood Urea Nitrogen 16.5 mg/dL (9.0-27.0); Calcium 8.8 mg/dL (8.7-10.3); Carbon Dioxide 23.7 mmol/L (21.6-31.8); Chloride 105 mmol/L (96-109); Creatine Kinase 110 U/L (35-257); Globulin 2.3 g/dL (1.6-3.3); Glucose 119 mg/dL (70-110); Potassium 3.9 mmol/L (3.5-5.5); Sodium 141 mmol/L (135-145); Total Bilirubin 0.8 mg/dL (0.3-1.2); Total Protein 6.5 g/dL (6.2-8.2)
[2024-08-23 15:51] LABS: Basophils # (A) 0.07 X 10*3/uL (0.00-0.10); Basophils % (A) 1.1 %; Eosinophils % (A) 7.6 %; HCT 47.9 % (39.6-50.0); HGB 16.4 g/dL (13.0-17.0); Lymphocytes # (A) 1.52 X 10*3/uL (0.90-5.00); Lymphocytes % (A) 23.2 %; MCH 29.7 pg (27.0-32.0); MCHC 34.2 g/dL (32.0-37.0); MCV 86.8 FL (80.0-97.0); Mean Platelet Volume 12.8 FL (9.5-12.2); Monocytes # (A) 0.58 X 10*3/uL (0.20-1.00); Monocytes % (A) 8.8 %; NRBC Per 100 WBC 0 X 10*3/uL (0.00-0.01); Neutrophils # (A) 3.78 X 10*3/uL (1.80-7.70); Neutrophils % (A) 57.6 %; Platelet Count 134 X 10*3/uL (140-440); RBC 5.52 X 10*6/uL (4.40-5.60); RDW 13.6 % (11.5-14.5); WBC 6.56 X 10*3/uL (4.50-10.00)
[2024-08-23 19:16] LABS: Microalbumin Creatinine Ratio <16 mg/g Cr (0-30); Urine Creatinine 77.4 mg/dL (39.0-259.0)
== END | disposition home or self-care (01) ==
LOC: LABWHC1 08:23
PROVIDERS: ATTEND Urology
DX: Z12.5 Encounter for screening for malignant neoplasm of prostate (principal); C61 Malignant neoplasm of prostate; E11.3293 Type 2 diabetes mellitus with mild nonproliferative diabetic retinopathy without macular edema, bilateral
CPT/HCPCS: 80061; 80053; 82550; 85025; 83721; 82043; 82570; 83036; 36415; G0103

== ENCOUNTER → 2024-11-08 | Outpatient (CLI) | payer MEDICARE ==
--- NOTE | 2024-11-08 14:10 | MR ---
EXAMINATION TYPE: MR Prostate wo/w con DATE OF EXAM: 11/08/2024 2:05 PM COMPARISON: None. CLINICAL INDICATION: Male, 69 years old with history of C61 PROSTATE CANCER; Prostate cancer. TECHNIQUE: Multi-planar, multi-sequence imaging of the pelvis is performed prior to and following the uncomplicated administration of bolus intravenous gadolinium. IV Contrast: 10 mL Gadobutrol Interpretive Criteria: PI-RADS v2.1 SERUM PSA: 08-23-24 = 9.39 03-05-24 = 6.52 SURGICAL PATHOLOGY: Positive biopsy 09/26/2023 bilaterally. FINDINGS: Prostatic dimensions: 5.1 x 4.2 x 3.3 cm. "Bullet" Volume:46.26 (PSA density=0.20 ng/mL/mL) CENTRAL GLAND (Central and Transition Zones/CZ+TZ): Multiple bilateral, heterogenous appearing hypertrophic stromal nodules, without suspicious lesion. M edian lobe hypertrophy with protrusion into the base of the bladder. (PI-RADS 2) PERIPHERAL ZONE (PZ): Anterior left frontal peripheral zone 6 mm lesion which demonstrates high density low ADC signal elsy g the capsule of the mid gland/apex. PI-RADS 24 SEMINAL VESICLES (SV): Symmetric and unremarkable. PERIPROSTATIC TISSUES: Unremarkable. LYMPH NODES: No enlarged pelvic lymph node. REMAINING PELVIS: Bladder wall is within normal limits given distention. No abnormal free or organized intrapelvic fluid collection. No pathologic bowel dilation or mural thickening. No hernia visualized OSSEOUS STRUCTURES: No suspicious osseous abnormality. IMPRESSION: 1. PI-RADS 4 Lesion in the anterior left peripheral zone, mid gland/apex measuring 6 mm. 2. Mild BPH, estimated gland volume 46.26 mL. 3. No suspicious osseous lesion. No lymphadenopathy. No evidence of prostate adenocarcinoma involving the periprostatic tissues. [facility], , 11/08/2024 2:08 PM
== END | disposition home or self-care (01) ==
LOC: RADMRIMAIN 08:05
PROVIDERS: ATTEND Urology
DX: C61 Malignant neoplasm of prostate (principal); N40.0 Benign prostatic hyperplasia without lower urinary tract symptoms
CPT/HCPCS: 72197; A9585

== ENCOUNTER → 2025-01-18 | Outpatient (CLI) | payer MEDICARE ==
[2025-01-18 18:08] LABS: Basophils # (A) 0.07 X 10*3/uL (0.00-0.10); Eosinophils # (A) 0.51 X 10*3/uL (0.04-0.35); Eosinophils % (A) 7.4 %; HCT 48.9 % (39.6-50.0); HGB 17.2 g/dL (13.0-17.0); Lymphocytes # (A) 1.71 X 10*3/uL (0.90-5.00); Lymphocytes % (A) 24.8 %; MCHC 35.2 g/dL (32.0-37.0); MCV 85.2 FL (80.0-97.0); Mean Platelet Volume 12.7 FL (9.5-12.2); Monocytes # (A) 0.55 X 10*3/uL (0.20-1.00); NRBC Per 100 WBC 0 X 10*3/uL (0.00-0.01); Neutrophils # (A) 3.99 X 10*3/uL (1.80-7.70); Neutrophils % (A) 57.8 %; Platelet Count 153 X 10*3/uL (140-440); RBC 5.74 X 10*6/uL (4.40-5.60); RDW 13.4 % (11.5-14.5)
[2025-01-18 18:23] LABS: Blood Urea Nitrogen 14.5 mg/dL (9.0-27.0); Calcium 9.3 mg/dL (8.7-10.3); Chloride 101 mmol/L (96-109); Glucose 125 mg/dL (70-110); Potassium 3.6 mmol/L (3.5-5.5); Sodium 137 mmol/L (135-145)
[2025-01-18 19:08] LABS: Appearance,Urine Clear (Clear); Bilirubin,Urine Negative (Negative); Blood,Urine Negative (Negative); Color,Urine Yellow (Yellow); Ketones,Urine Negative (Negative); Nitrite,Urine Negative (Negative); Specific Gravity,Urine 1.024 (1.001-1.030); Urobilinogen,Urine 0.2 E.U./DL
== END | disposition home or self-care (01) ==
LOC: LABPAT 12:45
PROVIDERS: ATTEND Urology
DX: Z01.812 Encounter for preprocedural laboratory examination (principal); C61 Malignant neoplasm of prostate
CPT/HCPCS: 80048; 81003; 85025; 86850; 86900; 86901; 87086

== ENCOUNTER → 2025-01-24 | Outpatient (CLI) | payer MEDICARE | END | disposition home or self-care (01) | LOC: LABPAT 09:27 | PROVIDERS: ATTEND Urology | DX: Z01.812 Encounter for preprocedural laboratory examination (principal); C61 Malignant neoplasm of prostate; R35.0 Frequency of micturition | CPT/HCPCS: 36415; 83036 ==

== ENCOUNTER 2025-01-27 05:33 | Day surgery (SDC) | payer MEDICARE ==
--- NOTE | 2025-01-18 10:27 | P.HPIHPCON ---
History of Present Illness H&P Date: 01/18/25 Chief Complaint: Prostate cancer This is a 69-year-old male with history of [place] 7(3+4) prostate cancer option of a robotic radical prostatectomy, radiation therapy and active surveillance was discussed with him in detail. He did agree to proceed with a robotic radical prostatectomy. He is aware of the risk which include but not limited to bleeding, infection, urinary incontinence, rectal dysfunction. Risk of anesthesia was also discussed with him in details. Discussed also risk of injury to nearby organs. He is aware of the risk of cancer recurrence, need for postoperative surveillance and the potential for additional treatments. He understood all the risk and agreed to proceed Consent for Procedure: I have explained the operation/procedure to the patient, including the risks, benefits, side effects, alternative therapies (including not receiving the proposed treatment or service), the likelihood of the patient achieving his/her goals, and potential recuperation problems for the procedure/sedation/analgesia, as well as any blood products, if indicated. I also explained to the patient the risks, benefits and side effects of the alternatives, as well as the risks related to not receiving the proposed procedure, care, treatment, or services. Past Medical History Past Medical History: Cancer, Diabetes Mellitus, Hyperlipidemia, Hypertension Additional Past Medical History / Comment(s): Melanoma History of Any Multi-Drug Resistant Organisms: None Reported Past Surgical History: No Surgical Hx Reported Additional Past Surgical History / Comment(s): neck surgery; lymph nodes removed; colonoscopy Past Anesthesia/Blood Transfusion Reactions: No Reported Reaction Additional Past Anesthesia/Blood Transfusion Reaction / Comment(s): No history of blood transfusion. Past Drug Use History: Marijuana - Past Family History Mother Family Medical History: No Reported History Sister(s) Family Medical History: Cancer Additional Family Medical History / Comment(s): lung cancer Medications and Allergies Home Medications Medication Instructions Recorded Confirmed Type Losartan Potassium 100 mg PO DAILY 02/24/14 11/30/24 History Multivitamin [Men's Multi-Vitamin] 1 tab PO DAILY 02/24/14 11/24/24 History Aspirin EC [Ecotrin Low Dose] 81 mg PO DAILY 05/14/23 11/24/24 History Empagliflozin [Jardiance] 25 mg PO DAILY 05/14/23 11/30/24 History Ibuprofen [Motrin] 600 mg PO DIRECTED PRN 05/14/23 11/24/24 History Semaglutide [Ozempic] 1 mg SQ WEEKLY 05/14/23 11/24/24 History tadalafiL 5 mg PO DAILY 05/14/23 11/30/24 History Ciprofloxacin HCl 500 mg PO DIRECTED 11/25/24 11/30/24 History Allergies Allergy/AdvReac Type Severity Reaction Status Date / Time No Known Allergies Allergy Verified 11/24/24 16:17 Surgical - Exam - General no distress, no pain - Eyes normal ocular movement, no pale - ENT normal nares, normal mucosa - Respiratory normal expansion, normal respiratory effort - Abdomen Abdomen: soft, non tender - Psychiatric oriented to time, oriented to person, oriented to place Assessment and Plan Assessment: OR for robotic radical prostatectomy, with pelvic lymph node dissection
[2025-01-27] MEDS: IV FLUID CONTINUATION 1,000 ML IV ONE ×4 (06:15→13:11)
[2025-01-27] MEDS: LIDOCAINE 1% (10MG/ML) FOR IV START INTRADERMA STA (06:15)
[2025-01-27] MEDS: LACTATED RINGERS 1,000 ML IV SCH (06:15)
[2025-01-27] MEDS: ONDANSETRON 4 MG/2 ML VIAL IVP ONE (06:32)
[2025-01-27] MEDS: DEXAMETHASONE SOD PHOSPHATE 4 MG/ML 1 ML VIAL IV ONE (06:32)
[2025-01-27 06:39] LABS: Glucose,Whole Blood 155 mg/dL (70-110)
[2025-01-27] MEDS: fentaNYL (PF) 50 MCG/ML 2 ML AMP IVP PRN (06:52)
[2025-01-27] MEDS: MIDAZOLAM 2 MG/2 ML VIAL IV ONE (06:52)
[2025-01-27] MEDS: HEPARIN SODIUM,PORCINE 5,000 UNIT/ML 1 ML VIAL SQ PRN (07:00)
[2025-01-27] MEDS ORDERED: PROPOFOL 10 MG/ML 20 ML VIAL IV ONE (07:25)
[2025-01-27] MEDS ORDERED: HYDROmorphone (PF) 1 MG/ML ONE (07:25)
[2025-01-27] MEDS ORDERED: PHENYLEPHRINE 10 MG/ML VIAL ONE (07:25)
[2025-01-27] MEDS ORDERED: SODIUM CHLORIDE 0.9% (PF) 10 ML VIAL ONE (07:25)
[2025-01-27] MEDS ORDERED: ROPIVACAINE 5 MG/ML 30 ML VIAL ONE (07:25)
[2025-01-27] MEDS ORDERED: GLYCOPYRROLATE 0.2 MG/ML 2 ML VIAL ONE (07:25)
[2025-01-27] MEDS ORDERED: LIDOCAINE 1% INJ 10MG/ML (20 ML MDV) ONE (07:25)
[2025-01-27] MEDS ORDERED: SUCCINYLCHOLINE CHLORIDE 200 MG/10 ML VIAL IV ONE (07:25)
[2025-01-27] MEDS ORDERED: fentaNYL (PF) 50 MCG/ML 2 ML AMP ONE (07:25)
[2025-01-27] MEDS ORDERED: ROCURONIUM 10 MG/ML (5 ML VIAL) IV ONE (07:25)
[2025-01-27] MEDS ORDERED: NEOSTIGMINE 1 MG/ML 10 ML VIAL ONE (07:25)
[2025-01-27] MEDS ORDERED: DEXAMETHASONE SOD PHOSPHATE 4 MG/ML 1 ML VIAL ONE (07:25)
[2025-01-27] MEDS ORDERED: PHENYLEPHRINE-0.9% NACL SYG 1,000 MCG/10 ML SYRINGE ONE (07:25)
[2025-01-27] MEDS: ceFAZolin 2 GM in DEXTROSE 5% IN WATER 50 ML IVPB PRN (07:30)
[2025-01-27] MEDS: BUPIVACAINE (PF) 0.25% 30 ML VIAL SQ ONE ×2 (07:59→10:57)
[2025-01-27] MEDS: LACTATED RINGERS 1,000 ML IV ONE (08:25)
--- NOTE | 2025-01-27 10:56 | P.ANPRN ---
Procedure Note - Anesthesia - Nerve Block Performed Bilateral Erector Spinae Single Time Out Performed: Yes (652) Date of Procedure: 01/27/25 Procedure Start Time: 06:53 Procedure Stop Time: 06:58 Location of Patient: PreOp Indication: Acute Post-Operative Pain, Requested by Surgeon Specifically requested for management of pain by : Marlon Jarrell Sedation Type: Sedate with meaningful contact maintained Preparation: Sterile Prep Position: Sitting Catheter: None Needle Types: Pajunk Needle Gauge: 21 Ultrasound used to visualize needle placement: Yes Ultrasound used to observe medication spread: Yes Injectate: 0.5% Ropivacaine (see comment for volume) (15cc+10cc nacl pf each side) Blood Aspirated: No Pain Paresthesia on Injection Noted: No Resistance on Injection: Normal Image Stored and Saved: Yes Events: Uneventful and Well Tolerated
[2025-01-27] MEDS ORDERED: HYDROmorphone 2 MG/ML 1 ML SYRINGE IVP PRN (11:37)
[2025-01-27] MEDS ORDERED: ONDANSETRON 4 MG/2 ML VIAL IVP PRN (11:37)
[2025-01-27] MEDS: HYDROmorphone 0.5 MG/0.5 ML SYRINGE IVP PRN (11:38)
--- NOTE | 2025-01-27 11:54 | P.OP ---
Date of Procedure: 01/27/25 Preoperative Diagnosis: Prostate cancer Postoperative Diagnosis: Same Procedure(s) Performed: Robotic radical prostatectomy Anesthesia: JANETH Surgeon: Marlon Jarrell Estimated Blood Loss (ml): 50 Pathology: other (Prostate, bilateral seminal vesicles) Condition: stable Disposition: PACU Indications for Procedure: This is a 69-year-old male with history of [place] 7(3+4) prostate cancer option of a robotic radical prostatectomy, radiation therapy and active surveillance was discussed with him in detail. He did agree to proceed with a robotic radical prostatectomy. He is aware of the risk which include but not limited to bleeding, infection, urinary incontinence, rectal dysfunction. Risk of anesthesia was also discussed with him in details. Discussed also risk of injury to nearby organs. He is aware of the risk of cancer recurrence, need for postoperative surveillance and the potential for additional treatments. He understood all the risk and agreed to proceed Description of Procedure: After preoperative antibiotics were started, the patient was taken to the operating room. Anesthesia was induced and the patient was placed in a supine position, with adequate padding of the pressure points, shoulders, back, legs and arms. He was then prepped and draped in the standard fashion. A critical pause was performed using two patient identifiers. A 16F butt catheter was placed to gravity drainage. A pneumo-peritoneum was created with placement of a Veress needle to 20 mm Hg without complication, and a 8 Fr trocar was placed above the umbillicus. Under direct vision a 8mm robotic ports was placed lateral to each rectus slightly below the camera port. The left iliac fossa 8mm port was placed. The right surgeon's assistant right iliac fossa 12mm port and right paramedian 5mm portwere placed. After the patient was placed in the trendelenberg position, the robot was then docked to the 8mm robotic ports and then each robotic arm and tower was checked in relation to the patient's legs and hands to avoid inadvertent compression. The peritoneal cavity was inspected. An inverted U-shaped incision began laterally to the left medial umbilical ligament and extended high across the midline to the right umbilical ligament. The limbs of the "U" extended to the level of the vasa on both sides. We next developed the preperitoneal space and the space of Retzius. Cautery was used to dissected the bladder away from the prostate. After the anterior bladder neck was incised and the bladder entered the the posterior bladder neck was exposed and the ureteral orifces identified. The posterior bladder neck was then incised and dissected away from the prostate. The vas and the seminal vesicles were now exposed and dissected to their insertions into the prostate and were not spared. The posterior layer of the Denonvillier's fascia was incised to enter shilpi the plane between prostate and perirectal fat. Each lateral pedicle was controlled with vessel sealer. Complete nerve preservation was performed bilaterally. the puboprostatic ligament was incised where it inserted into the apex of the prostate and a plane between urethra and dorsal venous complex developed to expose the anterior urethral surface. The anterior wall of the urethra was transected with the cut setting a few millimeters distal to the apex of the prostate. The dorsal vein was ligated using 3-0 V lock The urethrovesical anastomosis was performed . the posterior denovillers was reapproximated using 3-0 V lock. A 6 and 6 inch 3-0 V-Lock suture was used to anastomose the urethra and bladder, starting at the 6:00 posterior position. Mucosa was secured in every stitch, to ensure a mucosa to mucosa anastomosis. The stitch was regularly cinched and the anastomosis tightened. Care was taken to not violate the ureteral orifices. The Butt catheter was advanced, the bladder filled, and the anastomosis was tested, as described above. Anastomsis was watertight at 150 mL The periumbilical fascia was closed with 1-0-PDS suture in figure of eight fas hion. All ports were closed with a subcuticular 4-0 monocryl and Dermabond. Sponge, instrument, and needle counts were correct at the end of the case x2. All specimens including prostate and lymph nodes were sent to pathology for diagnosis and will be available in a week. The patient tolerated the surgery well and without complication. He awoke without difficulty and was taken to the recovery room in stable condition
[2025-01-27 12:35] LABS: Glucose,Whole Blood 222 mg/dL (70-110)
[2025-01-27] MEDS: KETOROLAC 15 MG/ML 1 ML VIAL IVP SCH (14:03)
[2025-01-27] MEDS: SODIUM CHLORIDE 0.9% 1,000 ML IV SCH (14:03)
[2025-01-27] MEDS: HEPARIN SODIUM,PORCINE 5,000 UNIT/ML 1 ML VIAL SQ SCH (17:25)
[2025-01-27 19:39] VITALS: RESP 17
[2025-01-28 01:47] VITALS: TEMP 98.5
[2025-01-28 07:19] VITALS: BP 134/75; PULSE 70
[2025-01-28 09:54] LABS: Glucose,Whole Blood 207 mg/dL (70-110)
[2025-01-28] MEDS: DAPAGLIFLOZIN PROPANEDIOL 10 MG TABLET PO SCH (09:54)
[2025-01-28] MEDS: LOSARTAN-HCTZ 50-12.5 MG 1 EACH TAB PO SCH (09:54)
--- NOTE | 2025-01-28 21:50 | P.DS ---
Providers Attending physician: Marlon Jarrell MD Primary care physician: Kb Yo [facility] Course: This is a 69-year-old male with history of [place] 7 prostate cancer. Underwent a robotic radical prostatectomy on January 27. Please see op note dated January 27 for surgery details. Patient was admitted to the hospital postoperatively. Patient was discharged home on postop day #1, with a Smith catheter. At time of discharge he was tolerating a diet, ambulating, and pain was controlled Patient Condition at Discharge: Good Plan - Discharge Summary Discharge Rx Participant: No New Discharge Prescriptions: New Ciprofloxacin HCl [Cipro] 500 mg PO Q12HR 3 Days #6 tab Ketorolac [Toradol] 10 mg PO Q6HR PRN #15 tab PRN Reason: Pain No Action Multivitamin [Men's Multi-Vitamin] 1 tab PO DAILY tadalafiL 5 mg PO DAILY Ibuprofen [Motrin] 600 mg PO DIRECTED PRN PRN Reason: Pain Empagliflozin [Jardiance] 25 mg PO DAILY Aspirin EC [Ecotrin Low Dose] 81 mg PO DAILY Semaglutide [Ozempic] 1 mg SQ WEEKLY Losartan/Hydrochlorothiazide [Losartan-Hctz 100-25 mg Tab] 1 tab PO DAILY Discharge Medication List Multivitamin [Men's Multi-Vitamin] 1 tab PO DAILY 02/24/14 [History] Aspirin EC [Ecotrin Low Dose] 81 mg PO DAILY 05/14/23 [History] Empagliflozin [Jardiance] 25 mg PO DAILY 05/14/23 [History] Ibuprofen [Motrin] 600 mg PO DIRECTED PRN 05/14/23 [History] tadalafiL 5 mg PO DAILY 05/14/23 [History] Losartan/Hydrochlorothiazide [Losartan-Hctz 100-25 mg Tab] 1 tab PO DAILY 01/24/25 [History] Semaglutide [Ozempic] 1 mg SQ WEEKLY 01/24/25 [History] Ciprofloxacin HCl [Cipro] 500 mg PO Q12HR 3 Days #6 tab 01/28/25 [Rx] Ketorolac [Toradol] 10 mg PO Q6HR PRN #15 tab 01/28/25 [Rx] Activity/Diet/Wound Care/Special Instructions: Start your antibiotics the Cipro 1 day prior to your follow-up appointment No heavy lifting or straining for 4 weeks You may shower, no baths It is normal to have blood in the urine Discharge Disposition: HOME SELF-CARE
== END 2025-01-28 11:46 | disposition home or self-care (01) ==
LOC: OR 05:33 → 4SSUR 11:01 → OR 01-28 11:46
PROVIDERS: ATTEND Urology
DX: C61 Malignant neoplasm of prostate (principal); G89.18 Other acute postprocedural pain; E11.9 Type 2 diabetes mellitus without complications; I10 Essential (primary) hypertension; E78.5 Hyperlipidemia, unspecified; F12.90 Cannabis use, unspecified, uncomplicated; M19.90 Unspecified osteoarthritis, unspecified site; Z85.820 Personal history of malignant melanoma of skin; Z79.82 Long term (current) use of aspirin; Z79.899 Other long term (current) drug therapy; Z79.84 Long term (current) use of oral hypoglycemic drugs; Z79.85 Long-term (current) use of injectable non-insulin antidiabetic drugs; Z98.890 Other specified postprocedural states
CPT/HCPCS: 64468; 88305; 88307; 88309; 55866; J2250; J0330; J1644 ×2; J1100; J2710; J0690; J2405; J2003; J3010; J1171 ×2; J2795; J1885 ×2; J2704; J2371 ×2; J0665; J1596